=== PATIENT | female | born 1970 | race Caucasian/White ===

== ENCOUNTER 2019-10-28 15:50 | Emergency (ER) | payer MEDICAID ==
[~2019-10-28] VITALS: Ht 160 cm; Wt 78.9 kg
[2019-10-28 15:57] VITALS: BP 168/94
--- NOTE | 2019-10-28 16:26 | NUR ---
PT AMBULATED TO BED 04
--- NOTE | 2019-10-28 17:00 | NUR ---
c/o facial rash x3 weeks and heart palpitations starting today. pt states she thinks she has lupus. Pt aox4 , afibrile , ambulatory with steady gait , pink palpebral conjunctiva , anicteric sclera , sce , flat soft abdomen. hx: none
--- NOTE | 2019-10-28 17:09 | NUR ---
evangelina pendleton at bedside evaluating pt.
[2019-10-28] MEDS ORDERED: methylPREDNISolone SS 125 MG/2 ML VIAL IM ONE (17:10)
[2019-10-28] MEDS ORDERED: FAMOTIDINE 20 MG TAB PO ONE (17:10)
--- NOTE | 2019-10-28 17:27 | NUR ---
pt comfortable in bed , side rails up x1 and lock.
[2019-10-28 17:50] VITALS: BP 160/91
--- NOTE | 2019-10-28 17:50 | NUR ---
Patient discharged with v/s stable. Written and verbal after care instructions given and explained regarding rash. Patient alert, oriented and verbalized understanding of instructions. Ambulatory with steady gait. All questions addressed prior to discharge. ID band removed. Patient advised to follow up with PMD. Rx of benadryl and prednisone given. Patient educated on indication of medication including possible reaction and side effects. Opportunity to ask questions provided and answered.
== END 2019-10-28 17:50 | disposition home or self-care (01) ==
LOC: MED 15:50
DX: R21 Rash and other nonspecific skin eruption (principal); R03.0 Elevated blood-pressure reading, without diagnosis of hypertension
CPT/HCPCS: 81002; 81025; 96372; 99283; J2930; Q0163

== ENCOUNTER 2019-12-20 14:56 | Emergency (ER) | payer MEDICAID ==
[~2019-12-20] VITALS: Ht 160 cm; Wt 77.6 kg
[2019-12-20 15:03] VITALS: BP 162/103
--- NOTE | 2019-12-20 15:08 | NUR ---
PATIENT AMBULATED TO ER BED 06
--- NOTE | 2019-12-20 15:11 | NUR ---
49 Y/O F C/C RASH EXACERBATION ON FACIAL AREA SINCE SUNDAY. PER PT FLARE UP OCCURS WHEN STOPS TAKING STEROIDS, RX PRESCRIBED IS PREDNISONE WHICH SUPPRESSES THE FLARE UP. PER PT NO PCP APPOINTMENTS UNTIL FEBRUARY. PT NKA. HX ECZEMA. RX PREDNISONE. NO NVD. SIDE RAIL X1.
--- NOTE | 2019-12-20 15:14 | NUR ---
ERMD AT BEDSIDE
[2019-12-20] MEDS ORDERED: methylPREDNISolone SS 125 MG in WATER STERILE 2 ML IM ONE (15:15)
[2019-12-20] MEDS ORDERED: methylPREDNISolone SS 125 MG/2 ML VIAL ONE (15:20)
[2019-12-20] MEDS ORDERED: WATER STERILE 10 ML MC ONE (15:20)
[2019-12-20 15:24] VITALS: BP 152/90
--- NOTE | 2019-12-20 15:25 | NUR ---
Patient discharged with v/s stable. Written and verbal after care instructions given and explained. Patient alert, oriented and verbalized understanding of instructions. Ambulatory with steady gait. All questions addressed prior to discharge. ID band removed. Patient advised to follow up with PMD. Rx of PREDNISONE,BENADRYL given. Patient educated on indication of medication including possible reaction and side effects. Opportunity to ask questions provided and answered.
== END 2019-12-20 15:24 | disposition home or self-care (01) ==
LOC: MED 14:56
DX: R21 Rash and other nonspecific skin eruption (principal); K13.79 Other lesions of oral mucosa
CPT/HCPCS: 96372; 99283; J2930